=== PATIENT | female | born 1945 ===

== ENCOUNTER 2020-03-24 15:05 | Outpatient (REF) | payer OTHER, SELFPAY | END 2020-03-24 15:06 | disposition home or self-care (01) | LOC: HO.SCI 15:05 | DX: Z13.89 Encounter for screening for other disorder (principal) ==

== ENCOUNTER 2020-04-06 10:41 | Outpatient (REF) | payer OTHER, SELFPAY ==
--- NOTE | 2020-04-06 10:51 | CT_ITS ---
EXAMINATION: CT HEAD WITHOUT CONTRAST CLINICAL INFORMATION: Alzheimer's, dementia. COMPARISON: None TECHNIQUE: Contiguous axial imaging was performed from the skull base to vertex without intravenous administration of contrast. This CT examination was performed using dose optimization techniques as appropriate, variously including the following: *Automated exposure control *Adjustment of mA and/or kV according to patient size (this includes techniques or standardized protocols for targeted exams where dose is matched to indication/reason for exam; i.e. extremities or head) *Use of iterative reconstruction technique DLP: 780 mGy-cm FINDINGS: There is no evidence of acute intracranial hemorrhage or territorial infarction. No abnormal mass effect or midline shift is seen. Davey to white matter differentiation is well preserved. No extra-axial fluid collections are identified. The lateral ventricles are symmetrical but enlarged. There is diffuse periventricular hypodensity suggestive of chronic small vessel ischemic changes. There is no abnormal attenuation within the brain parenchyma. The osseous structures and soft tissues are normal. The mastoid air cells and visualized portions of the paranasal sinuses are well aerated. CT/CT head/brain wo con IMPRESSION: No acute intracranial process seen.
== END 2020-04-06 10:42 | disposition home or self-care (01) ==
LOC: HO.CT 10:41
PROVIDERS: Visit Provider Psychiatry & Neurology Neurology
DX: G30.9 Alzheimer's disease, unspecified (principal)
CPT/HCPCS: 70450